=== PATIENT | female | born 1995 | race Two or more races ===

== ENCOUNTER 2024-01-31 13:09 | Emergency (ER) | payer OTHER ==
[~2024-01-31] VITALS: Ht 170.2 cm; Wt 53.5 kg
[2024-01-31] MEDS ORDERED: ESCI-9 (13:37)
[2024-01-31 15:20] LABS: *BILIRUBIN,URIN NEGATIVE (NEGATIVE); *BLOOD, URINE NEGATIVE (NEGATIVE); *CLARITY,URINE CLEAR (CLEAR); *KETONES,URINE NEGATIVE (NEGATIVE); *PROTEIN,URINE NEGATIVE (NEGATIVE); *UROBILINOGEN,URINE 0.2 E.U./dl (NORMAL); LEUKOCYTE ESTERASE ,URINE NEGATIVE (NEGATIVE); NITRITE, URINE NEGATIVE (NEGATIVE); UGLUCOSE NEGATIVE (NEGATIVE)
[2024-01-31 15:23] LABS: *COLOR,URINE LIGHT YELLOW (YELLOW)
[2024-01-31 15:24] LABS: *URINE HCG, QUAL NEGATIVE (NEGATIVE)
[2024-01-31] MEDS ORDERED: IBUPROFEN 800 MG TABLET ONE (15:39)
[2024-01-31] MEDS: IBUPROFEN 800 MG TABLET PO ONE (15:48)
[2024-01-31] MEDS ORDERED: NABU-140 PO (16:31)
[2024-01-31] MEDS ORDERED: HYDR-3972 PO (16:31)
[2024-01-31 16:38] VITALS: BP 114/66; TEMP 98.1; O2SAT 99
== END 2024-01-31 16:39 | disposition home or self-care (01) ==
LOC: ER 13:09
DX: S13.4XXA Sprain of ligaments of cervical spine, initial encounter (principal); S50.02XA Contusion of left elbow, initial encounter; S80.02XA Contusion of left knee, initial encounter; R10.2 Pelvic and perineal pain; R51.9 Headache, unspecified; F41.9 Anxiety disorder, unspecified; F07.81 Postconcussional syndrome; Z79.899 Other long term (current) drug therapy; V43.52XA Car driver injured in collision with other type car in traffic accident, initial encounter; Y93.89 Activity, other specified; Y92.410 Unspecified street and highway as the place of occurrence of the external cause; Y99.8 Other external cause status
CPT/HCPCS: 70450; 72125; 72131; 73070; 73560; 84703; A4606; A4663